=== PATIENT | female | born 1970 ===

== ENCOUNTER 2025-08-07 07:43 | Day surgery (SDC) | payer BC, SELFPAY | END 2025-08-07 15:37 | disposition home or self-care (01) | LOC: GI 07:43 | PROVIDERS: ATTENDING PHYSICIAN Internal Medicine Gastroenterology; FAMILY PHYSICIAN Internal Medicine | DX: Z12.11 Encounter for screening for malignant neoplasm of colon (principal); K64.8 Other hemorrhoids; K64.4 Residual hemorrhoidal skin tags; Z86.0101 Personal history of adenomatous and serrated colon polyps | CPT/HCPCS: G0105 ==